=== PATIENT | male | born 1950 | race Caucasian/White ===

== ENCOUNTER 2017-06-18 07:08 | Day surgery (SDC) | payer MEDICARE, BC ==
[2017-06-15 12:48] VITALS: BMI 37.0
[2017-06-18] MEDS ORDERED: CEFAZOLIN/Water 2 GM/20 ML SYRINGE ONE (08:25)
[2017-06-18] MEDS ORDERED: Fentanyl 100 MCG/2 ML VIAL ONE (08:45)
[2017-06-18 08:46] LABS: Hemoglobin 16.3 g/dL (14.0-18.0); Mean Corpuscular HGB CONC 32.8 g/dL (32.0-36.0); Mean Corpuscular Hemoglobin 31.6 pg (27.0-31.0); Mean Corpuscular Volume 96.4 fl (80.0-94.0); Platelet Count 118 thou/uL (130-400); RBC Distribution Width 13.4 % (11.5-14.5); Red Blood Cell (RBC) Count 5.17 mill/uL (4.70-6.10); White Blood Cell (WBC) Count 6.6 thou/uL (4.8-10.8)
[2017-06-18] MEDS ORDERED: HYDROmorphone 0.5 MG/0.5 ML SYRINGE ONE (08:46)
[2017-06-18] MEDS ORDERED: Midazolam HCl 2 mg/2 ml Vial ONE (08:50)
[2017-06-18] MEDS ORDERED: Scopolamine 1.5 mg/72 hour Patch ONE (08:51)
[2017-06-18 08:53] LABS: PTT 28.7 SEC (22.9-36.1)
[2017-06-18 09:52] LABS: Anion Gap 14 mmol/L (10-20); BUN (Urea Nitrogen) 13 mg/dL (8.4-25.7); Calc. Creatinine Clearance 149 mL/min (70-130); Calcium 9.4 mg/dL (7.8-10.44); Carbon Dioxide 23 mmol/L (23-31); Chloride 101 mmol/L (98-107); Estimated GFR-MDRD 86; Glucose 276 mg/dL (80-115); Potassium 4.3 mmol/L (3.5-5.1); Sodium 134 mmol/L (136-145)
--- NOTE | 2017-06-18 10:10 | RAD ---
BILATERAL RETROGRADE PYELOGRAM: Date: 06-18-17 Comparison: 10-18-16 History: Retrograde pyelogram. FINDINGS: Six total images are provided. Contrast media is injected into bilateral ureters and renal collecting systems. Left ureter and left renal collecting system appear grossly unremarkable. There is mild dilatation involving the mid/distal right ureter on Image 4 and Image 5, significance u ncertain. Correlation with real-time imaging is required. There is blunting/truncation involving the calices of the lower pole of the right kidney. There is mi ld blunting of lower pole left renal mike. IMPRESSION: There is caliceal blunting involving bilateral lower poles, particularly on the right, etiology uncer tain. This could represent change associated with scar, particularly on the right. Recommend CT exami nation to exclude underlying mass and to further evaluate caliceal blunting with a CT urogram jing Quarles POS: [facility]
[2017-06-18] MEDS ORDERED: B & O ONE (10:23)
--- NOTE | 2017-06-18 11:01 | OP ---
DATE OF PROCEDURE: 06/18/2017 PREOPERATIVE DIAGNOSIS: Recurrent bladder tumor. POSTOPERATIVE DIAGNOSIS: Recurrent bladder tumor. PROCEDURE PERFORMED: Cystoscopy, transurethral resection of the prostate and bilateral retrograde. SURGEON: Dr. Luis Miguel Patrick. ANESTHETIC: General. ESTIMATED BLOOD LOSS: Minimal. FINDINGS: There is a 1 cm papillary tumor on the anterior wall that was resected completely and fulg urated. Retrograde studies were done that showed normal appearing ureters and upper collecting syste ms. OPERATIVE TECHNIQUE: After obtaining written and verbal consent from the patient after receiving IV antibiotics, he was taken to the operating suite. He was placed in the supine position on the [facility] ent table. PlexiPulses were placed on his lower extremities and turned on. He was given a general a nesthetic and oral intubation. He was placed in the dorsal lithotomy position. He was sterilely pre pped and draped. Cystoscopy was performed with a 22-Spanish sheath. This was well lubricated and pas sed under direct vision through the male urethra and into the urinary bladder with aid of a 30 degree lens and a video camera and monitor. The bladder was filled and emptied a number of times and exami beryl with both a 30 and 70 degree lens. A optical effects layout person KUB was taken with the fluoroscopy unit. A 5-Spanish cone tip catheter was flushed with contrast. This distal end was injected in the distal left uretera l orifice and contrast was slowly injected in a retrograde manner perhaps 8-10 mL total. This side w as completely evaluated with this and the right side was done in the same way. Drainage films were d one. At this point, we brought in a flexible scope as we had very difficult time seeing a tumor that had been seen in the office. With a flexible scope, it was easy to see about 1.5 cm just inside of the bladder neck on the anterior wall. We are going to remove this flexible cystoscope and went in w ith a 24 Spanish resectoscope sheath with visual obturator well lubricated through the male urethra in to the bladder. We then used a 30-degree lens. We used gyrus generator and gyrus bladder tumor loop . An Matos resectoscope with the bladder just partially full and with some pressure, just above t he pubic symphysis was able to resect this tumor completely and fulgurate its edges as well as its ba se. The specimen was removed and sent to pathology. Freedman catheter was sterilely inserted and 20 mL placed and was draining clear urine, it was hooked up to a leg bag, secured to his right thigh and n o traction. He was awakened, extubated, and taken by stretcher to the recovery room.
[2017-06-18] MEDS ORDERED: Iothalamate Meglumine 60% 50 ML VIAL FS ONE (13:20)
[2017-06-18] MEDS ORDERED: Metoclopramide HCl 10 MG/2 ML VIAL ONE (16:55)
[2017-06-18] MEDS ORDERED: Ondansetron HCl/PF 4 MG/2 ML Vial ONE (16:55)
[2017-06-18] MEDS ORDERED: PROPOFOL 200 MG/20 ML VIAL ONE (16:55)
[2017-06-18] MEDS ORDERED: Succinylcholine Chloride 20 MG/ML 10 ml SYRINGE FS ONE (16:55)
[2017-06-18] MEDS ORDERED: Lidocaine 1% PF 5 ML VIAL ONE (16:55)
[2017-06-18] MEDS ORDERED: Glycopyrrolate 0.2 MG/ML 5 ML SYRINGE ONE (16:55)
--- NOTE | 2017-07-13 16:28 | EKG ---
Test Reason : PREOP Blood Pressure : / mmHG Vent. Rate : 079 BPM Atrial Rate : 079 BPM P-R Int : 152 ms QRS Dur : 122 ms QT Int : 410 ms P-R-T Axes : 016 066 060 degrees QTc Int : 470 ms Normal sinus rhythm Right bundle branch block Abnormal ECG When compared with ECG of 24-OCT-2016 06:27, (Unconfirmed) No significant change was found Confirmed by DR. Idris LEDESMA ([id number]) on 07/13/2017 4:27:45 PM Referred By: KATE Confirmed By:DR. Idris LEDESMA
== END 2017-06-18 11:55 | disposition home or self-care (01) ==
LOC: SDC 07:08
PROVIDERS: ATTEND Urology
PROC: 0T5B8ZZ Destruction of Bladder, Via Natural or Artificial Opening Endoscopic (ICD-10-PCS; principal; 2017-06-18)
DX: N30.80 Other cystitis without hematuria (principal); E11.9 Type 2 diabetes mellitus without complications; K21.9 Gastro-esophageal reflux disease without esophagitis; Z90.6 Acquired absence of other parts of urinary tract; Z90.49 Acquired absence of other specified parts of digestive tract; Z98.890 Other specified postprocedural states
CPT/HCPCS: 52234; 74420; 80048; 85027; 85610; 85730; 88307; 93005; 96374; C1758; 93010; J0131; J1170; J2001; J2250; J2405; J2704; J2765; J3010; Q9961

== ENCOUNTER 2017-07-02 20:37 | Emergency (ER) | payer MEDICARE, BC ==
[2017-07-02] MEDS ORDERED: Acetaminophen/Codeine 30-300mg Tablet ONE (21:45)
[2017-07-02] MEDS ORDERED: Ketorolac Tromethamine 30 MG/ML VIAL ONE (21:45)
--- NOTE | 2017-07-02 22:42 | RAD ---
LEFT SHOULDER RADIOGRAPHS THREE VIEWS: Date: 07-02-17 Provided Clinical History: Left shoulder pain status post injury. FINDINGS: No evidence of fracture or other acute osseous abnormality. If there is persistent clinical concern, conservative management and follow up imaging are advised. IMPRESSION: As above. POS: [facility]
--- NOTE | 2017-07-02 22:43 | RAD ---
RIGHT ELBOW RADIOGRAPHS FOUR VIEWS: Date: 07-02-17 Provided Clinical History: Right elbow pain status post injury. FINDINGS: There is no evidence for fracture or other acute osseous abnormality with limitations due to suboptim ally positioned lateral view. If clinical concern persists, conservative management and follow up rafaela ging are advised. IMPRESSION: As above. POS: [facility]
--- NOTE | 2017-07-02 22:46 | RAD ---
RIGHT SHOULDER RADIOGRAPHS THREE VIEWS: Date: 07-02-17 Provided Clinical History: Right shoulder pain status post injury. FINDINGS: No evidence for fracture or other acute osseous abnormality. If there is persistent clinical concern, conservative management and follow up imaging advised. IMPRESSION: As above. POS: [facility]
--- NOTE | 2017-07-02 22:47 | RAD ---
RIGHT WRIST RADIOGRAPHS THREE VIEWS: Date: 07-02-17 Provided Clinical History: Right wrist pain status post injury. FINDINGS: There is no evidence of a fracture or other acute osseous abnormality. If there is persistent clinica l concern, conservative management and follow up imaging are advised. IMPRESSION: As above. POS: [facility]
--- NOTE | 2017-07-02 22:48 | RAD ---
LEFT FEMUR RADIOGRAPHS TWO VIEWS: Date: 07-02-17 Provided Clinical History: Trauma. FINDINGS: No evidence for fracture or other acute abnormality. If there is persistent clinical concern, conserv ative management and follow up imaging are advised. IMPRESSION: As above. POS: [facility]
== END 2017-07-02 23:00 | disposition home or self-care (01) ==
LOC: ERS 20:37
DX: M79.1 Myalgia (principal); G47.30 Sleep apnea, unspecified; E11.9 Type 2 diabetes mellitus without complications; F17.210 Nicotine dependence, cigarettes, uncomplicated; Z85.51 Personal history of malignant neoplasm of bladder; W01.0XXA Fall on same level from slipping, tripping and stumbling without subsequent striking against object, initial encounter
CPT/HCPCS: 96372; J1885

== ENCOUNTER 2017-09-15 05:52 | Observation (INO) | payer MEDICARE, BC ==
[2017-09-15] MEDS ORDERED: Meclizine HCl 25 MG TAB ONE (06:53)
[2017-09-15] MEDS ORDERED: Ondansetron HCl/PF 4 MG/2 ML Vial ONE (06:53)
[2017-09-15 07:05] LABS: #Basophils 0.1 thou/uL (0.0-0.2); #Eosinphils 0.1 thou/uL (0.0-0.7); #Lymphocytes 1.7 thou/uL (1.20-3.40); #Monocytes 0.7 thou/uL (0.11-0.59); #Neutrophils 4.7 thou/uL (1.40-6.50); %Basophils 0.8 % (0.0-1.0); %Eosinophils 1.5 % (0.0-10.0); %Lymphocytes 23.7 % (21.0-51.0); %Monocytes 9.6 % (0.0-10.0); %Neutrophils 64.4 % (42.0-75.0); Hemoglobin 16.2 g/dL (14.0-18.0); Mean Corpuscular HGB CONC 33.1 g/dL (32.0-36.0); Mean Corpuscular Hemoglobin 31.8 pg (27.0-31.0); Mean Corpuscular Volume 95.9 fl (80.0-94.0); Mean Platelet Volume 8.2 fL (7.4-10.4); Platelet Count 151 thou/uL (130-400); RBC Distribution Width 13.4 % (11.5-14.5); Red Blood Cell (RBC) Count 5.12 mill/uL (4.70-6.10); White Blood Cell (WBC) Count 7.3 thou/uL (4.8-10.8)
[2017-09-15 07:15] LABS: INR-International Normal Ratio 0.9; PTT 29.9 SEC (22.9-36.1); Prothrombin Time 12.6 SEC (12.0-14.7)
[2017-09-15 07:25] LABS: ALT (SGPT) 39 U/L (8-55); AST (SGOT) 22 U/L (5-34); Albumin 3.9 g/dL (3.4-4.8); Alkaline Phosphatase 70 U/L (40-150); Anion Gap 12 mmol/L (10-20); BUN (Urea Nitrogen) 12 mg/dL (8.4-25.7); Bilirubin, Total 0.4 mg/dL (0.2-1.2); CK (CPK) 178 U/L (30-200); Calc. Creatinine Clearance 0 mL/min (70-130); Calcium 9.1 mg/dL (7.8-10.44); Carbon Dioxide 23 mmol/L (23-31); Chloride 106 mmol/L (98-107); Estimated GFR-MDRD Greater than 90; Globulin 2.8 g/dL (2.4-3.5); Glucose 145 mg/dL (80-115); Lipase 48 U/L (8-78); Potassium 4.3 mmol/L (3.5-5.1); Protein, Total 6.7 g/dL (5.8-8.1); Sodium 137 mmol/L (136-145)
[2017-09-15 07:30] LABS: CKMB 1.9 ng/mL (0-6.6); Troponin I Less than 0.010 ng/mL (< 0.028)
--- NOTE | 2017-09-15 08:04 | CT ---
CT HEAD NONCONTRAST: Date: 09/15/17 HISTORY: Dizziness. FINDINGS: No comparison. There is no evidence of acute intracranial hemorrhage or infarct. Mild chronic ischemic small vessel disease and diffuse cortical atrophy are noted. There is no mass effect or shift of midline structure s. Dystrophic calcification at the inner table of the right frontal calvarium approaches the underlyi ng right frontal gyrus. Visualized paranasal sinuses remain well aerated. IMPRESSION: No acute intracranial abnormalities are demonstrated on noncontrast CT head. POS: [facility]
--- NOTE | 2017-09-15 08:10 | RAD ---
CHEST 1 VIEW: Date: 09/15/17 HISTORY: Altered mental status. COMPARISON: 10/24/16. FINDINGS: Cardiac silhouette is magnified by projection. Pulmonary vasculature remains upper limits of normal. Mediastinum is midline. Minimal fluid is present within the right minor fissure. Right lateral costop hrenic angle is excluded from the image. No lobar consolidation or evidence of pneumothorax. fitness/wellness director leads overlie the chest. IMPRESSION: Borderline pulmonary vascular congestion. POS: [facility]
[2017-09-15 09:40] LABS: Bilirubin Negative (Negative); Blood, Urine Negative (Negative); Clarity CLEAR (Clear); Glucose, Urine (Dipstick) Negative (Negative); Leukocyte Negative (Negative); Nitrite Negative (Negative); Protein, Urine (Dipstick) Negative (Neg-Trace); Specific Gravity, Urine 1.019 (1.002-1.036); Urobilinogen 0.2 mg/dL (0.2-1.0); pH, Urine 5.5 (5.0-9.0)
[2017-09-15] MEDS ORDERED: Ondansetron ODT 4 MG TAB SL PRN (13:06)
[2017-09-15] MEDS ORDERED: Ondansetron HCl/PF 4 MG/2 ML Vial IVP PRN (13:06)
[2017-09-15 13:09] VITALS: BMI 36.6
[2017-09-15] MEDS ORDERED: HYDROcodone/Acetaminophen 5/325 mg Tablet PO PRN (13:27)
[2017-09-15] MEDS ORDERED: hydrALAZINE 20 MG/ML VIAL SLOW IVP PRN (13:27)
[2017-09-15] MEDS ORDERED: Acetaminophen 325 MG TAB PO PRN (13:27)
[2017-09-15] MEDS ORDERED: Dextrose 50% Abboject 50 ML SYRINGE SLOW IVP PRN (13:39)
[2017-09-15] MEDS ORDERED: Insulin Regular 300 UNITS/3 ML VIAL SC PRN (13:39)
[2017-09-15] MEDS ORDERED: Dextrose 5% in Water 1,000 ML IV PRN (13:39)
[2017-09-15 14:01] LABS: Anion Gap 13 mmol/L (10-20); BUN (Urea Nitrogen) 10 mg/dL (8.4-25.7); Calc. Creatinine Clearance 162 mL/min (70-130); Calcium 9.2 mg/dL (7.8-10.44); Carbon Dioxide 23 mmol/L (23-31); Chloride 105 mmol/L (98-107); Estimated GFR-MDRD Greater than 90; Glucose 133 mg/dL (80-115); Potassium 4.4 mmol/L (3.5-5.1); Sodium 137 mmol/L (136-145)
--- NOTE | 2017-09-15 14:44 | HP ---
DATE OF CONSULTATION: 09/15/2017 DATE OF ADMISSION: 09/15/2017 CHIEF COMPLAINT: Dizziness. HISTORY OF PRESENT ILLNESS: This is a 67-year-old morbidly obese white male with a known history of type 2 diabetes mellitus, on oral hypoglycemics. Patient had a recent shoulder surgery for right rot ator cuff tear on the right shoulder and he was recuperating from the surgery and is doing fine, was in his usual state of health, today in the morning he woke up at 3:30 to pass urine. He developed a sudden onset of dizziness and he was swaying from left to right, while he was walking towards the bat hroom and he went back to the bed and he called his and explained about the symptoms and the pat ient was immediately brought to the ER for further evaluation. The patient's symptoms have completel y resolved when he came to the ER, but he was intermittently having dizziness, dizziness is not assoc iated with nausea. No evidence of any nystagmus was noted and no hearing loss was noted. The patien t was also noted to have right ear conduction deafness with cerumen impaction was noted and the ER ph ysicians tried to clear the wax. The patient denied having similar symptoms in the past. He denied having any chest pain, no nausea, no vomiting, no diarrhea, no constipation. No history of any recen t hospitalization. The patient had a thorough cardiac workup prior to his recent surgery and does no t have any history of coronary artery disease. Patient is a chronic and active smoker. PAST MEDICAL HISTORY: 1. Type 2 diabetes mellitus. 2. 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 PAST SURGICAL HISTORY: 1. Right shoulder rotator cuff repair. 2. Right knee arthroscopy. 3. Back surgeries in the past. SOCIAL HISTORY: The patient is a nonsmoker. Smokes half pack a day and has been smoking for more th an 40 years. No history of alcohol or history of illicit drug use. FAMILY HISTORY: No significant family history of coronary artery disease nor any cancers in the fami ly. ALLERGIES: No known drug allergies. HOME MEDICATIONS: Liraglutide 0.6 mg per 0.1 mL pen. He takes 18 mcg in the evening, metformin 500 mg p.o. daily, and omeprazole 20 mg p.o. daily. REVIEW OF SYSTEMS: All 12 systems are reviewed with the patient thoroughly and found to be negative at this time. Systems reviewed are HEENT, CVS, INFORMATION SECURITY ARCHITECT, respiratory, all systems are reviewed and found to be negative. Constitutional: Weight loss or gain, sense of well-being, ability to conduct usual activities, exerc ise tolerance. Skin/Breast: Rash, itching, changes in hair growth or loss, nail changes, breast lumps, tenderness, swelling, nipple discharge. Eyes: Vision, double vision, tearing, blind spots, pain. ENT/Mouth: Headaches (location, time of onset, duration, precipitating factors), vertigo, lightheade dness, injury. Vision, double vision, tearing, blind spots, pain, nose bleeding, colds, obstruction, discharge, dental difficulties, gingival bleeding, dentures, neck stiffness, pain, tenderness, masses in thyroid or other areas. Cardiovascular: Precordial pain, substernal distress, palpitations, syncope, dyspnea on exertion, or thopnea, nocturnal paroxysmal dyspnea, edema, cyanosis, hypertension, heart murmurs, varicosities, ph lebitis, claudication. Respiratory: Pain, shortness of breath, wheezing, stridor, cough, hemoptysis, fever or night sweats Gastrointestinal: Poor appetite, dysphagia, indigestion, abdominal pain, heartburn, eructation, naus ea, vomiting, hematemesis, jaundice, constipation, or diarrhea, abnormal stools (bigg-colored, tarry, bloody, greasy, foul smelling), flatulence, hemorrhoids, recent changes in bowel habits. Genitourinary: Urgency, frequency, dysuria, nocturia, hematuria, polyuria, oliguria, unusual (or juanjose nge in) color of urine, stones, hesitancy, change in size of stream, dribbling, acute retention or in continence, libido, potency. Musculoskeletal: Pain, swelling, redness or heat of muscles or joints, limitation, of motion, muscul ar weakness, atrophy, cramps. Neurologic/Psychiatric: Convulsions, paralyses, tremor, incoordination, paresthesias, difficulties w ith memory of speech, sensory or motor disturbances, or muscular coordination (ataxia, tremor), emoti onal problems, anxiety, depression, previous psychiatric care, unusual perceptions, hallucinations. Allergy/Immunologic: Skin rash, anemia, bleeding tendency, polydipsia, polyuria, intolerance to heat or cold. PHYSICAL EXAMINATION: VITAL SIGNS: Blood pressures are 130/86, heart rate is 70, respiratory rate is 18, saturation 92% on room air. GENERAL: The patient is morbidly obese, is alert and oriented x3. HEENT: Atraumatic, normocephalic. PERRLA. Extraocular muscles were intact. NECK: No thyromegaly. No lymphadenopathy. No JVD. CARDIOVASCULAR: S1, S2 normal. No murmurs, rubs or gallops. LUNGS: Bilateral air entry was equal. No wheezing, no crackles. ABDOMEN: Distended, nontender, no guarding, no rebound tenderness. Bowel sounds normal. MUSCULOSKELETAL: No calf tenderness. No pedal edema. No joint tenderness, no joint swelling. SKIN: No cyanosis or erythema, no rash, no pallor. CENTRAL NERVOUS SYSTEM: Cranial nerve examination II-XII intact. No focal deficits were noted. PSYCHIATRIC: No signs of any suicidal ideation and no signs of shae. LABORATORY DATA: Sodium 139, potassium 4.3, chloride 106, bicarbonate 23, BUN 12, creatinine 0.82, A ST, ALT normal. Troponin 0.010. BNP less than 10. WBC 7.3, hemoglobin is 16.2, hematocrit is 49.1. UA was negative for any urinary tract infection. ASSESSMENT AND PLAN: 1. Acute vertigo. 2. Possible transient ischemic attack. 3. Type 2 diabetes mellitus. 4. Morbid obesity. 5. Active smoker. 6. History of bladder cancer. PLAN: 1. Plan is to closely monitor this patient. We will get an MRI of the brain and ultrasound of the c arotids to rule out any evidence of a TIA with posterior circulation deficits contributing to the pre sent complaints. We will do neuro checks overnight and closely monitor. If the patient's MRI is neg ative, most likely the symptoms could be from the benign positional vertigo. Reassured the patient t hat if the MRI is negative, the patient could be discharged home tomorrow and will closely follow up with his primary care physician. 2. The patient will have PT and OT evaluate the dizziness for benign positional vertigo and teach hi m some Hallpike maneuvers to control the dizziness. 3. Patient is morbidly obese. Encouraged the patient to lose weight for better control of blood sug ars. 4. Patient has history of type 2 diabetes mellitus. We will continue the patient on Victoza. We wi ll hold off on the metformin at this time. I will start the patient on sliding scale insulin. 5. DVT prophylaxis with Lovenox 40 mg subcu daily. I spent 75 minutes on this patient.
--- NOTE | 2017-09-15 15:29 | ULT ---
CAROTID DUPLEX SONOGRAM: Date: 09/15/17 HISTORY: Altered mental status. Vascular disease. FINDINGS: RIGHT: No significant plaque. Color and spectral Doppler evaluation, peak systolic velocity of 75 cm/second, and ICA/CCA ratio of 0.8 suggests no hemodynamically significant stenosis within the extracranial ri ght ICA. Antegrade flow is present within the vertebral artery. LEFT: Color and spectral Doppler evaluation, peak systolic velocity of 63 cm/second, and ICA/CCA ratio of 1 .1 suggests no hemodynamically significant stenosis within the extracranial left ICA. Antegrade flow is present within the vertebral artery. IMPRESSION: No sonographic evidence of significant extracranial ICA stenosis. POS: [facility]
[2017-09-15] MEDS: Nicotine 14 MG PATCH TD SCH (15:54)
[2017-09-15] MEDS ORDERED: Prevnar 13-Val Conj/PF 0.5 ML SYRINGE IM ONE (17:30)
[2017-09-15] MEDS ORDERED: LIRAGLUTIDE 18 MG SC SCH (21:00)
[2017-09-15] MEDS ORDERED: Famotidine/PF 20 mg/2ml Vial SLOW IVP SCH (21:00)
[2017-09-15] MEDS ORDERED: Atorvastatin Calcium 40 MG TAB PO SCH (21:00)
[2017-09-15] MEDS: Docusate 100 MG CAP PO SCH (21:16)
[2017-09-16] MEDS ORDERED: Naproxen 500 MG TAB PO PRN (03:14)
[2017-09-16 05:39] LABS: #Basophils 0.1 thou/uL (0.0-0.2); #Eosinphils 0.1 thou/uL (0.0-0.7); #Lymphocytes 2.5 thou/uL (1.20-3.40); #Monocytes 0.9 thou/uL (0.11-0.59); #Neutrophils 4.8 thou/uL (1.40-6.50); %Eosinophils 1.5 % (0.0-10.0); %Lymphocytes 29.5 % (21.0-51.0); %Monocytes 10.5 % (0.0-10.0); %Neutrophils 57.6 % (42.0-75.0); Hemoglobin 16.1 g/dL (14.0-18.0); Mean Corpuscular HGB CONC 33.4 g/dL (32.0-36.0); Mean Corpuscular Hemoglobin 32.8 pg (27.0-31.0); Mean Corpuscular Volume 98.2 fl (80.0-94.0); Platelet Count 149 thou/uL (130-400); RBC Distribution Width 13.5 % (11.5-14.5); Red Blood Cell (RBC) Count 4.91 mill/uL (4.70-6.10); White Blood Cell (WBC) Count 8.3 thou/uL (4.8-10.8)
[2017-09-16 05:59] LABS: Cardiac Risk 5.9 (Less than 4.5)
[2017-09-16] MEDS ORDERED: Aspirin 81 mg Enteric Coated Tablet PO SCH (09:00)
[2017-09-16] MEDS: Docusate 100 MG CAP PO SCH (09:22)
--- NOTE | 2017-09-16 11:01 | MRI ---
BRAIN MRI NONCONTRAST: Date: 09/16/17 INDICATION: TIA. FINDINGS: No evidence of ventriculomegaly, mass effect, midline shift, or acute territorial infarction. Minimal chronic microvascular ischemic disease is present. The imaged skull base flow-voids are grossly magana nt, within limitations. There is motion artifact during the exam which does limit sensitivity. No int racranial hemorrhagic susceptibility evident. There are small remote lacunar infarctions of each cere bellar hemisphere. IMPRESSION: No acute intracranial abnormality. POS: [facility]
[2017-09-16] MEDS: Nicotine 14 MG PATCH TD SCH (13:38)
--- NOTE | 2017-09-16 15:32 | CON ---
DATE OF CONSULTATION: 09/16/2017 CONSULTING PHYSICIAN: Hospitalist. IMPRESSION: 1. Peripheral vertigo. 2. Depressed ejection fraction of 30-35%. PLAN: 1. Aspirin 81 mg per day. 2. Follow up with Dr. Morejon. HISTORY OF PRESENT ILLNESS: Mr. Piper is a 67-year-old gentleman who came in with complaints of ve rtigo. He found that he was quite dizzy when he tried to get up yesterday morning. This lasted for at least half the day. He denies any prodromal symptoms such as sinus congestion or drainage. There were no associated focal neurologic symptoms. There was no nausea or vomiting, did not have a heada sweetie, came into the ER for evaluation. A CT of the brain was unremarkable; his carotid Doppler study does not show any stenosis. His echocardiogram showed an ejection fraction of 30-35% and MRI of the brain did not reveal any evidence of acute ischemic changes. His vital signs have been stable and he is afebrile since admission. His blood glucoses have been elevated, but otherwise his labs were unr emarkable. PAST MEDICAL HISTORY: Hypertension and hyperlipidemia. FAMILY HISTORY: Noncontributory. SOCIAL HISTORY: No tobacco or alcohol use. MEDICATION LIST: Reviewed. REVIEW OF SYSTEMS: Otherwise, negative for any chest pain, shortness of breath, dyspnea on exertion, palpitations, lightheadedness or syncope. PHYSICAL EXAMINATION: GENERAL: He is an overweight middle-aged man in no distress. VITAL SIGNS: Blood pressure 114/63, pulse 72, respirations 16, temperature 98.1. HEENT: Pupils equal and reactive. Conjunctivae clear. There is some rotary nystagmus and left gaze . Oropharynx is clear. NECK: Supple, no lymphadenopathy noted. EXTREMITIES: No cyanosis. NEUROLOGIC: He is alert and appropriate. His speech is fluent and clear. His exam is nonfocal. IMAGING: Reviewed. SUMMARY: A 67-year-old man with prolonged episode of vertigo yesterday. His symptoms have since res olved. This either represents benign positional vertigo or possibly vestibular neuronitis. He has a depressed ejection fraction that he was unaware of and will need followup. He has elevated blood gl ucoses, which will likely need to be addressed as well. He recently started on a diet and is making efforts at weight loss. I would suggest follow up at the [facility] if he has any recurren t symptoms.
[2017-09-16 15:37] VITALS: BP 101/61; TEMP 98.4
[2017-09-16] MEDS ORDERED: Carvedilol 3.125 MG TAB PO SCH (17:00)
--- NOTE | 2017-09-16 19:26 | DIS ---
DATE OF ADMISSION: 09/15/2017 DATE OF DISCHARGE: 09/16/2017 ADMITTING DIAGNOSIS: Acute dizziness. DISCHARGE DIAGNOSIS: Acute dizziness, likely benign positional vertigo. SECONDARY DIAGNOSES: 1. Chronic systolic heart failure with low ejection fraction. 2. Hyperglycemia with possible diabetes. 3. History of bilateral cerebellar strokes. CONSULTANTS INVOLVED IN THE CARE: Dr. Matt Bunn from Neurology and Dr. Morejon from Cardiology. INVESTIGATIONS DONE DURING THIS ADMISSION: Brain MRI showing old bilateral strokes with no acute str soha. Echocardiogram done showing an evidence of low ejection fraction of 30% to 35%. HISTORY OF PRESENT ILLNESS AND HOSPITAL COURSE: In brief, this is a 67-year-old morbidly obese white male, who was admitted for dizziness, which he developed sudden onset and which actually resolved co mpletely before he reached the hospital. The patient was having intermittent dizziness while he was in the hospital. He had a CT of the head initially which was negative and then following which MRI o f the brain was done, which was unremarkable, but showed old bilateral cerebellar strokes. The patie nt was seen by Neurology, who evaluated the patient and the patient was not having any acute symptoms and advised to discharge the patient, the patient had a PT and OT evaluation. The patient had a 2D echo as a stroke workup, which did show an evidence of a low EF of 30% to 35%. The patient was started on lisinopril and spironolactone and also Cardiology was consulted as the [facility] is requesting. Cardiology suggested the patient to be started on Coreg 3.125 mg. The patient w as also having elevated blood sugars, is not a known diabetic. We started the patient on metformin. Advised to follow up with the primary care physician. The patient was discharged home in stable condition. PHYSICAL EXAMINATION: VITAL SIGNS: Blood pressure is 101/61, heart rate is 70, respiration rate 16, saturation 92%, GENERAL: The patient is moderately built, morbidly obese, he is alert and oriented x3. HEENT: Atraumatic. CARDIOVASCULAR: S1, S2 normal. No murmurs, rubs or gallops. LUNGS: Bilateral air entry was equal. No wheezing, no crackles. ABDOMEN: Soft, nontender, no guarding, no rebound tenderness. Bowel sounds normal. MUSCULOSKELETAL: No calf tenderness or pedal edema. No joint tenderness, no joint swelling. DISCHARGE MEDICATIONS: OLD MEDICATIONS: 1. Metformin 500 mg daily. 2. Liraglutide Victoza 18 mg subcu daily at night. NEW MEDICATIONS: 1. Metformin 500 mg p.o. b.i.d. 2. Aspirin 81 mg daily. 3. Atorvastatin 40 mg p.o. daily. The patient is refusing to take statin as he was having some musc le cramps in the past. 4. Lisinopril 2.5 mg p.o. daily. 5. Spironolactone 12.5 mg p.o. daily. 6. Coreg 3.125 mg p.o. b.i.d. This was given by Dr. Morejon. DISCHARGE INSTRUCTIONS: Continue activity as tolerated. Advised to follow up with primary care phys harman for better control of the blood sugars and advised to follow up with Cardiology in 2-3 weeks. I spent 35 minutes with this patient on the day of discharge.
[2017-09-16] MEDS ORDERED: Enoxaparin Sodium 40 MG/0.4 ML SYRINGE SC SCH (21:00)
--- NOTE | 2017-09-16 23:45 | CON ---
DATE OF CONSULTATION: 09/16/2017 INDICATION FOR CONSULTATION: This is a 67-year-old gentleman, who was admitted with dizziness. Echo cardiogram showed a decrease in left ventricular systolic function. He has a history of diabetes and somewhat abnormal stress test approximately a year ago. We were asked to see him for evaluation due to the decrease in ejection fraction. HISTORY OF PRESENT ILLNESS: This very pleasant gentleman, who is now 67 years old, retired, was seen by me in 10/2016 prior to undergoing bladder surgery for bladder cancer. He had a stress test at at time, which showed some inferior wall hypokinesis. We discussed whether or not to proceed with ca rdiac catheterization at that time or to proceed with surgery. We opted to proceed with surgery sinc e he had bladder cancer. I did not have any symptoms. He had remained very active and given the salome unt of work load, he was able to perform without symptoms, he was anticipated that his surgery would not be as much of a stress as what he was doing his daily exertion himself. He denied any chest pain or shortness of breath and he also did quite well during his surgical procedure without any cardiac problems. He was admitted this time after having episodes of dizziness. Recently, he has had his di abetic medicines doubled and this may have been the etiology of the dizziness. He got up to go the b athroom and felt dizzy. He sat back down in the bed and stayed for a while and he still when he got back up, he still complained of dizziness, but recently his metformin as well as Victoza had been danni bled and the dosage due to his increase in the diabetes after he was being given steroid shots for hi s shoulder problems. He recently undergone repair of the right shoulder. He was having steroid inje ctions due to the discomfort. At this time, his EKG shows a right bundle branch block, which is not new. He had an echocardiogram performed, which showed ejection fraction around 30% to 35%. Previous ejection fraction was about 50% to 55%. He also has a history of diastolic dysfunction with mild ao rtic valve regurgitation. He had an MRI today, which showed no acute problems except for some remote lacunar infarcts from any cerebellar hemisphere. The carotids were unremarkable. He had a CT scan, which also was unremarkable. His chest x-ray shows some mild borderline congestion. Otherwise, he has remained stable and was asymptomatic from a cardiac standpoint. PAST MEDICAL HISTORY: Significant for pulmonary emboli in 2017 to the right lower lobe. He has had bladder surgery for transitional cell cancer. He has sleep apnea, obesity, and umbilical hernia repa ir. He has had a cholecystectomy. He has had right knee surgery. He has had bilateral shoulder damian kelsey. His last one was about four or five weeks ago in the right shoulder after he had a fall. SOCIAL HISTORY: He is , has children, who are alive and well. He has smoked up to 2 packs a day for many years and is now down to less than half a pack a day. 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 ALLERGIES: None. MEDICATIONS: Prior to admission included metformin as well as Victoza and aspirin. At this time, he has been placed on insulin and Victoza and metformin had been held. REVIEW OF SYSTEMS: A 12-point review of systems unremarkable except for his shoulder pains as well a s dizziness. He denied any HEENT complaints, visual changes, hearing loss, or tinnitus. He had no p ulmonary complaints such as asthma, emphysema, bronchitis, does show exertional shortness of breath. He had no GI complaints such as nausea, vomiting or diarrhea. No complaints, dysuria, polyuria, hematuria. Musculoskeletal: No lower extremity complaints, mainly of the shoulder area to the disco mfort and no history of syncope or seizures. PHYSICAL EXAMINATION: GENERAL: Reveals a well-developed, well-nourished gentleman, who is in no acute distress. He is loretta rt and oriented x3. VITAL SIGNS: Stable. Blood pressure is slightly elevated at 150/82 early was 101/61, heart rate is 70 and regular, respiratory rate 16. He is afebrile. HEENT: Shows head to be normocephalic and atraumatic. NECK: Carotid pulses are present. I did not hear any significant bruits. There is no JVD. The thy roid was not enlarged and mucosa was pink and moist. CHEST: Clear to auscultation. There were no rales, rhonchi or wheezing. CARDIOVASCULAR: Exam reveals a regular rate and rhythm, normal S1, S2. There is no S3, S4. There w ere no significant murmurs, heaves, thrills, bruits or rubs. ABDOMEN: Shows obesity with positive bowel sounds. No organomegaly or masses are noted. Femoral pu lses are present. EXTREMITIES: Show no clubbing, cyanosis or edema. Pedal pulses are present. NEUROLOGIC: The patient appears to be fully intact. SKIN: Warm and dry. EKG shows a normal sinus rhythm with right bundle branch block. LABORATORY DATA: Shows an LDL level to be elevated at 113. Hemoglobin is 16.1, potassium 4.4, creat inine 0.8. BNP was less than 10. Cardiac enzymes were negative. IMPRESSION: 1. Dizziness, which may be associated with the change in his medications. There has been no acute p roblems noted. He does have history of remote lacunar infarcts; however, from the MRI. It is unlike ly this will be a sudden onset of dizziness. His medications may need to be adjusted and if dizzines s recurs and this certainly may be due to the Victoza, metformin. 2. What appears to be new onset decrease in left ventricular systolic function with a somewhat abnor mal stress test in the past. He will be advised to undergo a cardiac catheterization. This can be p erformed as an outpatient in the next 2-3 weeks. He has no symptoms otherwise. 3. History of diabetes. His blood sugars have been somewhat poorly controlled after he has been on steroids and these medications are being adjusted by the primary team. 4. Hypercholesterolemia. He is unable to take statin as his LDL level was elevated at 113. He need s to be less than 70 as he is a diabetic. He has been placed on a diet and he is trying to follow th e diet and then I would suggest repeat the LDL level in about 3 months if he is unable to take that p erhaps he can go into the new injectable medications for lowering of the cholesterol. This will be m ore than happy to continue to follow the patient, but I believe he is stable for discharge. I will s ee him back in the office in the next week and we will discuss further treatment for this gentleman. We may need to repeat the echocardiogram for evaluation of left ventricular systolic function as rafaela ges were somewhat difficult to evaluate here in the hospital due to poor quality images. We may have made the ejection fraction may actually be better, but otherwise would suggest he undergo cardiac ca theterization as he did have a somewhat abnormal stress test in 2017.
[2017-09-17] MEDS ORDERED: Spironolactone 25 MG TAB PO SCH (08:00)
[2017-09-17] MEDS ORDERED: Lisinopril 2.5 MG TAB PO SCH (09:00)
--- NOTE | 2017-10-26 13:59 | EKG ---
Test Reason : Blood Pressure : / mmHG Vent. Rate : 074 BPM Atrial Rate : 074 BPM P-R Int : 176 ms QRS Dur : 126 ms QT Int : 420 ms P-R-T Axes : 034 063 063 degrees QTc Int : 466 ms Normal sinus rhythm Right bundle branch block Abnormal ECG Confirmed by MATY CRUMP, RUEL ([id number]), brands editor ROCIO SUTTON ([id number]) on 10/26/2017 1:58:54 PM Referred By: Confirmed By:RUEL RUTLEDGE MD
== END 2017-09-16 18:25 | disposition home or self-care (01) ==
LOC: ERS 05:52 → 2SE 07:37
PROVIDERS: ADMIT Family Medicine; ATTEND Family Medicine
DX: H81.399 Other peripheral vertigo, unspecified ear (principal); I11.0 Hypertensive heart disease with heart failure; I50.22 Chronic systolic (congestive) heart failure; E11.9 Type 2 diabetes mellitus without complications; M19.011 Primary osteoarthritis, right shoulder; F17.210 Nicotine dependence, cigarettes, uncomplicated; G47.30 Sleep apnea, unspecified; E78.5 Hyperlipidemia, unspecified; E66.01 Morbid (severe) obesity due to excess calories; Z68.36 Body mass index [BMI] 36.0-36.9, adult; Z86.711 Personal history of pulmonary embolism; Z86.73 Personal history of transient ischemic attack (TIA), and cerebral infarction without residual deficits; Z79.84 Long term (current) use of oral hypoglycemic drugs
CPT/HCPCS: 70450; 70551; 71045; 80048; 80053; 80061; 81003; 82550; 82553; 82962 ×2; 83690; 83880; 84484; 85025 ×2; 85610; 85730; 90670; 93005; 93306; 93880; 96374; 97139; 99285; G0009; G0378; G8978; G8979; G8980; 36415; 36416; 90471; A4216; J1815; J2405

== ENCOUNTER 2019-06-09 18:03 | Emergency (ER) | payer MEDICARE, BC ==
[2019-06-09 19:00] LABS: #Basophils 0.1 thou/uL (0.0-0.2); #Eosinphils 0.1 thou/uL (0.0-0.7); #Lymphocytes 2.3 thou/uL (1.20-3.40); #Monocytes 0.9 thou/uL (0.11-0.59); #Neutrophils 7.3 thou/uL (1.40-6.50); %Basophils 0.8 % (0.0-1.0); %Eosinophils 1.2 % (0.0-10.0); %Lymphocytes 21.4 % (21.0-51.0); %Monocytes 8.4 % (0.0-10.0); %Neutrophils 68.2 % (42.0-75.0); Hemoglobin 17.1 g/dL (14.0-18.0); Mean Corpuscular Hemoglobin 31.3 pg (27.0-31.0); Mean Platelet Volume 8.8 fL (7.4-10.4); Platelet Count 140 thou/uL (130-400); RBC Distribution Width 13.4 % (11.5-14.5); Red Blood Cell (RBC) Count 5.45 mill/uL (4.70-6.10); White Blood Cell (WBC) Count 10.7 thou/uL (4.8-10.8)
[2019-06-09 19:23] LABS: ALT (SGPT) 30 U/L (8-55); AST (SGOT) 26 U/L (5-34); Albumin 4.2 g/dL (3.4-4.8); Alkaline Phosphatase 56 U/L (40-110); Anion Gap 12 mmol/L (10-20); BUN (Urea Nitrogen) 13 mg/dL (8.4-25.7); Bilirubin, Total 0.5 mg/dL (0.2-1.2); Calc. Creatinine Clearance 0 mL/min (70-130); Calcium 9.4 mg/dL (7.8-10.44); Carbon Dioxide 26 mmol/L (23-31); Chloride 102 mmol/L (98-107); Estimated GFR-MDRD 79; Globulin 3.3 g/dL (2.4-3.5); Glucose 124 mg/dL (80-115); Potassium 4.2 mmol/L (3.5-5.1); Protein, Total 7.5 g/dL (5.8-8.1); Sodium 136 mmol/L (136-145)
[2019-06-09 21:02] LABS: Bacteria/HPF None Seen HPF (None Seen); Bilirubin Negative (Negative); Blood, Urine Trace (Negative); Clarity Clear (Clear); Glucose, Urine (Dipstick) Normal (Negative); Leukocyte Negative Leu/uL (Negative); Nitrite Negative (Negative); Protein, Urine (Dipstick) Negative (Neg-Trace); RBC/HPF 0-3 HPF (0-3); Squamous Epithelial 0-3 HPF (0-3); Urobilinogen Normal mg/dL (Less than 2)
== END 2019-06-09 21:21 | disposition home or self-care (01) ==
LOC: ERS 18:03
DX: R10.32 Left lower quadrant pain (principal); E11.9 Type 2 diabetes mellitus without complications; G47.30 Sleep apnea, unspecified; F17.210 Nicotine dependence, cigarettes, uncomplicated; Z79.84 Long term (current) use of oral hypoglycemic drugs; Z79.899 Other long term (current) drug therapy
CPT/HCPCS: 36415; 80053; 81003; 81015; 85025; 99284

== ENCOUNTER 2019-08-06 07:50 | Outpatient (CLI) | payer MEDICARE, BC ==
--- NOTE | 2019-08-06 08:57 | CT ---
CT Abdomen Pelvis W WO con History: Bladder cancer. Posttreatment Comparison: CT abdomen and pelvis September 2016 Findings: Lung bases are clear. No pericardial effusion. There is a hypodensity hepatic segment 6 which is subcentimeter, unchanged from the comparison exam w ithout any significant internal enhancement. Cholecystectomy. No enhancing hepatic mass. There is a small hypodensity interpolar region of the spleen with fat attenuation, unchanged. Pancreas is unremarkable. No intrahepatic or extrahepatic biliary dilatation. Normal proximal small b owel rotation. Focal saccular ectasia infrarenal abdominal aorta measuring up to 3.7 cm for a craniocaudal length of 2.5 cm. No retroperitoneal periaortic adenopathy. No abnormal renal enhancing mass nor urothelial mass. Mild wall thickening of the right lateral urinary bladder without an intraluminal filling defect appreciated. There is a moderate multilevel degenerative disc space height loss at the lumbar spine. Large posteri or disc osteophyte complex at L2/L3 with high-grade spinal canal narrowing, chronic in nature. This is relatively similar to the 2017 study. No suspicious osteolytic or osteoblastic lesions. Impression: 1. Posttreatment changes of the urinary bladder without a polypoid filling defect appreciated. 2. No abnormal renal enhancing mass. 3. No hydroureteronephrosis or nephroureterolithiasis. No secondary evidence of a recently passed sto ne. 4. No abnormal urothelial enhancement. 5. Infrarenal abdominal aortic saccular aneurysm measuring up to 3.7 cm in size for craniocaudal edvin th of 2.5 cm.
[2019-08-06] MEDS ORDERED: Iopamidol-370 76% 500 ML 1 ML ONE (13:47)
== END 2019-08-06 07:51 | disposition home or self-care (01) ==
LOC: BICCT 07:50
PROVIDERS: ATTEND Urology
DX: C67.9 Malignant neoplasm of bladder, unspecified (principal); I71.4 Abdominal aortic aneurysm, without rupture
CPT/HCPCS: 74178; 82565; Q9967

== ENCOUNTER 2019-11-28 07:22 | Outpatient (CLI) | payer MEDICARE, BC ==
--- NOTE | 2019-11-28 08:36 | CT ---
LOW DOSE CT SCAN OF THE CHEST WITHOUT IV CONTRAST FOR LUNG CANCER SCREENING: HISTORY: The patient is a current smoker and has smoked 1 pack a day for over 50 years. COMPARISON: 03/20/2018. FINDINGS: Emphysematous changes are again seen bilaterally. Calcified granuloma in the peripheral aspect of th e superior segment of the right lower lobe is again noted. No suspicious nodules are otherwise seen. There is scarring in the left upper lobe. There are vascular calcifications without evidence of aneurysmal dilatation of the thoracic aorta. M ediastinal lymph nodes are stable without mediastinal lymphadenopathy. No pleural or pericardial eff usions are seen. There are degenerative changes in the spine. Upper abdominal tomograms demonstrate postop changes of cholecystectomy. IMPRESSION: Lung RADS category 2: benign. RECOMMENDATION: LDCT is recommended in 12 months. POS: [facility]
== END 2019-11-28 07:23 | disposition home or self-care (01) ==
LOC: BICCT 07:22
PROVIDERS: ATTEND Internal Medicine
DX: Z12.2 Encounter for screening for malignant neoplasm of respiratory organs (principal); F17.210 Nicotine dependence, cigarettes, uncomplicated
CPT/HCPCS: G0297

== ENCOUNTER 2021-12-22 07:28 | Outpatient (CLI) | payer MEDICARE, BC ==
[2021-12-22] MEDS ORDERED: Iopamidol-370 76% 500 ML 1 ML ONE (13:28)
== END 2021-12-22 07:29 | disposition home or self-care (01) ==
LOC: BICCT 07:28
PROVIDERS: ATTEND Internal Medicine
DX: I71.9 Aortic aneurysm of unspecified site, without rupture (principal)
CPT/HCPCS: 71271; 74175; 82565; Q9967

== ENCOUNTER 2022-01-26 13:07 | Emergency (ER) | payer MEDICARE, BC ==
[~2022-01-26 13:07] MED LIST: Iopamidol-370 76% 500 ML 1 ML ONE
[2022-01-26 13:42] LABS: #Basophils 0.1 thou/uL (0.0-0.2); #Eosinphils 0.1 thou/uL (0.0-0.7); #Lymphocytes 1.4 thou/uL (1.20-3.40); #Monocytes 0.5 thou/uL (0.11-0.59); #Neutrophils 8.8 thou/uL (1.40-6.50); %Basophils 0.5 % (0.0-1.0); %Eosinophils 0.6 % (0.0-10.0); %Lymphocytes 12.6 % (21.0-51.0); %Monocytes 4.3 % (0.0-10.0); Hemoglobin 16.6 g/dL (14.0-18.0); Mean Corpuscular HGB CONC 32.3 g/dL (32.0-36.0); Mean Corpuscular Hemoglobin 31.7 pg (27.0-31.0); Mean Corpuscular Volume 98.2 fL (78.0-98.0); Mean Platelet Volume 8.4 fL (7.4-10.4); Platelet Count 143 thou/uL (130-400); RBC Distribution Width 13.4 % (11.5-14.5); Red Blood Cell (RBC) Count 5.23 mill/uL (4.70-6.10); White Blood Cell (WBC) Count 10.8 thou/uL (4.8-10.8)
[2022-01-26] MEDS ORDERED: Morphine 4 MG/ML VIAL ONE (13:55)
[2022-01-26] MEDS ORDERED: Ondansetron PF 4 MG/2 ML Vial ONE (13:55)
[2022-01-26] MEDS ORDERED: Ketorolac Tromethamine 30 MG/ML VIAL ONE (13:55)
[2022-01-26 14:08] LABS: ALT (SGPT) 25 U/L (8-55); AST (SGOT) 21 U/L (5-34); Alkaline Phosphatase 61 U/L (40-110); Anion Gap 15 mmol/L (10-20); BUN (Urea Nitrogen) 8 mg/dL (8.4-25.7); Bilirubin, Total 0.5 mg/dL (0.2-1.2); Calc. Creatinine Clearance 0 mL/min (70-130); Calcium 9.1 mg/dL (7.8-10.44); Carbon Dioxide 24 mmol/L (23-31); Chloride 105 mmol/L (98-107); Estimated GFR 88; Glucose 158 mg/dL (80-115); Lipase 52 U/L (8-78); Potassium 4.5 mmol/L (3.5-5.1); Sodium 139 mmol/L (136-145)
[2022-01-26] MEDS ORDERED: Lidocaine Viscous Sol 2% 15 ml UD Cup ONE (15:11)
[2022-01-26] MEDS ORDERED: Mag-Al 1200 mg/1200 mg/30 ML UDCUP ONE (15:11)
== END 2022-01-26 16:10 | disposition home or self-care (01) ==
LOC: ERS 13:07
DX: K57.32 Diverticulitis of large intestine without perforation or abscess without bleeding (principal); E11.9 Type 2 diabetes mellitus without complications; F17.210 Nicotine dependence, cigarettes, uncomplicated; Z79.84 Long term (current) use of oral hypoglycemic drugs; Z79.899 Other long term (current) drug therapy
CPT/HCPCS: 36415; 71045; 74177; 80053; 83690; 84484; 85025; 93005; 94760; 96361; 96374; 96375; J1885; J2270; J2405; Q9967

== ENCOUNTER 2023-02-07 09:38 | Outpatient (CLI) | payer MEDICARE, BC ==
[2023-02-07 11:06] LABS: Hematocrit 51.2 % (38.8-50.0); Hemoglobin 17.1 g/dL (13.5-17.5); Mean Corpuscular HGB CONC 33.4 g/dL (32.0-36.0); Mean Corpuscular Hemoglobin 31.2 pg (27.0-33.0); Mean Corpuscular Volume 93.4 fl (81.2-95.1); Mean Platelet Volume 11.2 fl (7.4-10.4); Platelet Count 150 10x3/uL (150-450); RBC Distribution Width 14.4 % (11.5-14.5); Red Blood Cell (RBC) Count 5.48 10x6/uL (4.32-5.72); White Blood Cell (WBC) Count 9.3 10x3/uL (3.5-10.5)
[2023-02-07 11:14] LABS: PTT 26.7 sec (22.0-33.0); Prothrombin Time 10.4 sec (9.5-12.1)
[2023-02-07 11:16] LABS: Anion Gap 14 mmol/L (10-20); BUN (Urea Nitrogen) 11 mg/dL (8.4-25.7); Calc. Creatinine Clearance 0 mL/min (70-130); Carbon Dioxide 23 mmol/L (23-31); Chloride 103 mmol/L (98-107); Estimated GFR 92; Glucose 204 mg/dL (83-110); Potassium 4.8 mmol/L (3.5-5.1); Sodium 135 mmol/L (136-145)
== END 2023-02-07 09:39 | disposition home or self-care (01) ==
LOC: LABBT 09:38
PROVIDERS: ATTEND Urology
DX: Z01.818 Encounter for other preprocedural examination (principal); N32.9 Bladder disorder, unspecified
CPT/HCPCS: 80048; 85027; 85610; 85730; 87077; 87086; 87186; 93005; 93010

== ENCOUNTER 2023-02-13 11:34 | Day surgery (SDC) | payer MEDICARE, BC ==
[2023-02-07 10:18] VITALS: BMI 35.2
[2023-02-13] MEDS ORDERED: LevoFLOXacin 500 mg/D5W 500 MG in Premix Bag 1 BAG IVPB SCH (12:15)
[2023-02-13] MEDS ORDERED: mitoMYcin 40 MG in Sodium Chloride 0.9% 40 ML I-VESIC SCH (12:15)
[2023-02-13] MEDS ORDERED: MITOMYCIN I-VESIC SCH (12:30)
[2023-02-13] MEDS ORDERED: SODIUM CHLORIDE 0.9% I-VESIC SCH (12:30)
[2023-02-13] MEDS ORDERED: SUGAMMADEX SODIUM 200 MG/2 ML VIAL ONE (13:42)
[2023-02-13] MEDS ORDERED: Famotidine/PF 20 mg/2ml Vial ONE (13:42)
[2023-02-13] MEDS ORDERED: fentaNYL 50 mcg/mL 1 mL Vial ONE ×2 (13:42→15:42)
[2023-02-13] MEDS ORDERED: Ondansetron PF 4 MG/2 ML Vial ONE ×2 (13:47→13:56)
[2023-02-13] MEDS ORDERED: LevoFLOXacin 500 mg/D5W 100 ML BAG ONE (13:49)
[2023-02-13] MEDS ORDERED: PHENYLEPHRINE-NS 100 MCG/ML 10 ML SYRINGE ONE (13:50)
[2023-02-13] MEDS ORDERED: Rocuronium Bromide 10 MG/ML (10ML VIAL) ONE (13:56)
[2023-02-13] MEDS ORDERED: PROPOFOL 200 MG/20 ML VIAL ONE (13:56)
[2023-02-13] MEDS ORDERED: Lidocaine 1% PF 5 ML VIAL ONE (13:56)
[2023-02-13] MEDS ORDERED: Iopamidol 15 ML ONE (15:28)
[2023-02-13] MEDS ORDERED: Hyoscyamine SL 0.125 MG TAB ONE ×2 (15:33→15:50)
[2023-02-13] MEDS ORDERED: Promethazine HCl 25 MG/ML VIAL ONE (16:12)
== END 2023-02-13 17:24 | disposition home or self-care (01) ==
LOC: SDC 11:34
PROVIDERS: ATTEND Urology
PROC: 0TB78ZX Excision of Left Ureter, Via Natural or Artificial Opening Endoscopic, Diagnostic (ICD-10-PCS; principal; 2023-02-13)
PROC: 0TB68ZX Excision of Right Ureter, Via Natural or Artificial Opening Endoscopic, Diagnostic (ICD-10-PCS; 2023-02-13)
DX: N30.90 Cystitis, unspecified without hematuria (principal); N32.89 Other specified disorders of bladder; E11.9 Type 2 diabetes mellitus without complications; I25.10 Atherosclerotic heart disease of native coronary artery without angina pectoris; G47.30 Sleep apnea, unspecified; E78.00 Pure hypercholesterolemia, unspecified; Z79.899 Other long term (current) drug therapy; Z90.49 Acquired absence of other specified parts of digestive tract; Z79.84 Long term (current) use of oral hypoglycemic drugs; F17.210 Nicotine dependence, cigarettes, uncomplicated
CPT/HCPCS: 52204; 52234; J3010; J9280; 88305; J1956; J2405; J2550; J2704; Q9967; S0028

== ENCOUNTER 2023-07-15 14:33 | Emergency (ER) | payer OTHER, MEDICARE, BC ==
[2023-07-15] MEDS ORDERED: HYDROcodone/Acetaminophen 5/325 mg Tablet ONE (15:30)
== END 2023-07-15 17:07 | disposition home or self-care (01) ==
LOC: ERS 14:33
DX: S80.02XA Contusion of left knee, initial encounter (principal); M25.511 Pain in right shoulder; M25.532 Pain in left wrist; R29.700 NIHSS score 0; M25.552 Pain in left hip; I10 Essential (primary) hypertension; E11.9 Type 2 diabetes mellitus without complications; F17.210 Nicotine dependence, cigarettes, uncomplicated; W18.09XA Striking against other object with subsequent fall, initial encounter; Z79.84 Long term (current) use of oral hypoglycemic drugs; Z79.4 Long term (current) use of insulin; Z79.899 Other long term (current) drug therapy
CPT/HCPCS: 29125